=== PATIENT | female | born 1965 | race Two or more races ===

== ENCOUNTER → 2017-09-25 | Outpatient (CLI) | payer BC, OTHER ==
[~2017-09-25] MED LIST: CETI10TA24 PO; PROP80TA PO; [UNRECOGNIZED DRUG - CODE] PO
== END ==
LOC: STAR 09:20
PROVIDERS: ATTEND Orthopaedic Surgery
DX: Z02.9 Encounter for administrative examinations, unspecified (principal)

== ENCOUNTER → 2018-02-28 | Outpatient (CLI) | payer OTHER ==
[2018-02-28 11:55] LABS: BASOPHILS # (AUTO) 0.02 x10^3/uL (0-0.1); BASOPHILS % (AUTO) 1 % (0-1); EOSINOPHILS # (AUTO) 0.08 x10^3/uL (0-0.4); EOSINOPHILS % (AUTO) 2 % (1-7); LYMPHOCYTES # (AUTO) 1.59 x10^3/uL (1-3.4); LYMPHOCYTES % (AUTO) 39 % (22-44); MD NO; MEAN CORPUSCULAR HEMOGLOBIN 31.7 pg (27.0-34.8); MEAN CORPUSCULAR HGB CONC 34.4 g/dL (32.4-35.8); MEAN CORPUSCULAR VOLUME 92.2 fL (80-100); MEAN PLATELET VOLUME 7.4 fL (7.4-10.4); MONOCYTES # (AUTO) 0.38 x10^3/uL (0.2-0.8); MONOCYTES % (AUTO) 9 % (2-9); NEUTROPHILS # (AUTO) 1.99 x10^3/uL (1.8-6.8); NEUTROPHILS % (AUTO) 49 % (42-75); PLATELET COUNT 284 x10^3/uL (130-400); RED BLOOD COUNT 4.52 x10^6/uL (3.82-5.3); RED CELL DISTRIBUTION WIDTH 12.2 % (9.6-15.2)
[2018-02-28 11:56] LABS: ALANINE AMINOTRANSFERASE 25 U/L (12-78); ALBUMIN 3.4 g/dL (3.4-5.0); ANION GAP 10 mmol/L (5-15); CALCIUM 8.7 mg/dL (8.5-10.1); CHLORIDE 109 mmol/L (98-107); CHOLESTEROL, TOTAL 246 mg/dL (140-239); CREATININE 0.88 mg/dL (0.55-1.02)
[2018-02-28 12:06] LABS: ALKALINE PHOSPHATASE 66 U/L (45-117); BILIRUBIN,TOTAL 0.8 mg/dL (0.2-1.0); CHOL/HDL RATIO 4.5; HDL CHOL % 22 % (28-40); HDL CHOLESTEROL (DIRECT) 55 mg/dL (40-60); TOTAL PROTEIN 7.6 g/dL (6.4-8.2); TRIGLYCERIDES 440 mg/dL (50-200)
== END | disposition home or self-care (01) ==
LOC: LAB 11:20
PROVIDERS: ATTEND Family Medicine
DX: Z00.01 Encounter for general adult medical examination with abnormal findings (principal); E55.9 Vitamin D deficiency, unspecified
CPT/HCPCS: 36415; 80053; 80061; 82306; 84443; 85025

== ENCOUNTER 2018-05-16 12:29 | Day surgery (SDC) | payer OTHER ==
[~2018-05-16] VITALS: Ht 147.3 cm; Wt 58.6 kg
[~2018-05-16 12:29] MED LIST changes: +BUPIVACAINE/PF 0.5% ONE; +CYAN1TAB29 PO; +ERGO500017 PO; +FLAX SEED OIL PO; +PROP60CA PO
[2018-05-16] MEDS ORDERED: LACTATED RINGERS 1,000 ML IV SCH (12:43)
[2018-05-16 12:55] VITALS: BP 141/98
[2018-05-16] MEDS ORDERED: ACETAMINOPHEN 500 MG TABLET PO ONE (13:00)
[2018-05-16] MEDS ORDERED: ONDANSETRON ODT 8 MG PO ONE (13:00)
[2018-05-16] MEDS ORDERED: MIDAZOLAM 1 MG/ML, 2ML ONE (13:00)
[2018-05-16] MEDS ORDERED: FENTANYL PF 100 MCG/2ML ONE ×2 (13:00→14:13)
[2018-05-16] MEDS ORDERED: GABAPENTIN 300 MG CAPSULE PO ONE (13:00)
[2018-05-16] MEDS ORDERED: PROPOFOL 10 MG/ML, 50ML ONE (13:26)
[2018-05-16] MEDS ORDERED: PROPOFOL 10 MG/ML, 20ML ONE (13:45)
[2018-05-16] MEDS ORDERED: DEXAMETHASONE 4 MG/ML, 1ML ONE (13:45)
[2018-05-16] MEDS ORDERED: CEFAZOLIN 1,000 MG ONE (13:45)
[2018-05-16] MEDS ORDERED: SCOPOLAMINE PATCH, 1.5MG PATCH.TD72 TD PRN (14:00)
[2018-05-16] MEDS ORDERED: hydrALAzine 20 MG/ML, 1ML IV PRN (14:00)
[2018-05-16] MEDS ORDERED: HYDROmorphone 2 MG/ML, 1ML IVPush PRN (14:00)
[2018-05-16] MEDS ORDERED: ONDANSETRON 2MG/ML, 2ML IV PRN (14:00)
[2018-05-16] MEDS ORDERED: OXYcodone 5 MG/5 ML ORAL.SOL UDC PO PRN (14:00)
[2018-05-16] MEDS ORDERED: ALBUTEROL/IPRATROPIUM 2.5MG/0.5MG, 3 ML NPPB PRN (14:00)
[2018-05-16] MEDS ORDERED: PROMETHAZINE 12.5 MG SUPP PR PRN (14:00)
[2018-05-16] MEDS ORDERED: LABETALOL 5MG/ML, 20ML IV PRN (14:00)
[2018-05-16] MEDS ORDERED: OXYcodone 5 MG/5 ML ORAL.SOL UDC ONE (14:13)
[2018-05-16] MEDS: FENTANYL PF 100 MCG/2ML IV PRN ×3 (14:15→14:26)
== END 2018-05-16 16:10 | disposition home or self-care (01) ==
LOC: OUT 12:29
PROVIDERS: ATTEND Orthopaedic Surgery
DX: G56.01 Carpal tunnel syndrome, right upper limb (principal); M65.311 Trigger thumb, right thumb
CPT/HCPCS: 26055; 29848; J0690; J1100; J2250; J2704; J3010; J3490; J7120; Q0162